=== PATIENT | female | born 1950 | race Caucasian/White ===

== ENCOUNTER 2017-05-13 11:07 | Day surgery (SDC) | payer OTHER ==
[~2017-05-13] VITALS: Ht 162.6 cm; Wt 83.5 kg
[~2017-05-13 11:07] MED LIST: ACET500T PO; AMLO5TAB2 PO; ATOR80TA14 PO; ATOR80TA59 PO; CLAR10CA3 PO; GABA400C PO; GABA800T PO; GLYB1TAB67 PO; GLYB2.5T PO; IBUP-1022 PO; JANU100T PO; LISI40TAB PO; OMEP20CA3 PO; OMEP40CA2 PO; PREM0.452 PO; TRAM50TA2 PO; TRIL135C PO; TYLE500T78 PO; ULTR50TA PO; VITA10002 PO; fenofibrate OR; prempro OR
[2017-05-13] MEDS ORDERED: dexameTHASONE 10 MG/1 ML VIAL PRES.FREE (J1100) ONE (11:08)
[2017-05-13] MEDS ORDERED: ROPIvacaine 0.5% 30 ML INJECTION (J2795 PER 1MG) ONE (11:08)
[2017-05-13] MEDS ORDERED: LIDOCAINE 1% MDV 20ML VIAL ONE (11:08)
[2017-05-13] MEDS ORDERED: HYDR-2808 PO (11:43)
[2017-05-13] MEDS ORDERED: LIDOCAINE 1% MDV 20ML VIAL As Ordered ONE (12:03)
[2017-05-13] MEDS ORDERED: EPINEPHrine 1MG/ML INJ 30ML MD-VIAL As Ordered ONE (12:03)
[2017-05-13] MEDS ORDERED: fentaNYL 100 MCG/2 ML INJECTION (J3010) As Ordered ONE ×2 (12:29→13:10)
[2017-05-13] MEDS ORDERED: MIDAZOLAM INJ 2 MG/2 ML VIAL (J2250) As Ordered ONE ×2 (12:29→13:10)
[2017-05-13] MEDS ORDERED: MIDAZOLAM INJ 2 MG/2 ML VIAL (J2250) IV ONE (13:15)
[2017-05-13] MEDS ORDERED: fentaNYL 100 MCG/2 ML INJECTION (J3010) IV ONE (13:15)
[2017-05-13] MEDS ORDERED: ONDANSETRON 4MG/2ML VIAL (J2405) As Ordered ONE (13:34)
[2017-05-13] MEDS ORDERED: dexameTHASONE 4 MG/ML 1ML VIAL (J1100) As Ordered ONE (13:34)
[2017-05-13] MEDS ORDERED: SUCCINYLCHOLINE 100 MG/5 ML SYRINGE (J0330) As Ordered ONE (13:34)
[2017-05-13] MEDS ORDERED: PROPOFOL 500 MG/50 ML VIAL As Ordered ONE (13:41)
[2017-05-13] MEDS ORDERED: DESFLURANE 240 ML INHALANT As Ordered ONE (13:54)
[2017-05-13] MEDS ORDERED: LIDOCAINE 2% INJ 100 MG/5 ML SDV (FOR ANES.) As Ordered ONE (13:56)
[2017-05-13] MEDS ORDERED: fentaNYL 100 MCG/2 ML INJECTION (J3010) IV PRN (16:30)
[2017-05-13] MEDS ORDERED: ONDANSETRON 4MG/2ML VIAL (J2405) IV PRN (16:30)
[2017-05-13] MEDS ORDERED: HYDROmorphone HCL 1 MG/ML SYRINGE (J1170) IV PRN (16:30)
[2017-05-13] MEDS ORDERED: PERCOCET 5MG/325MG TAB PO PRN (16:30)
[2017-05-13] MEDS ORDERED: LR 1,000 ML IV SCH ×2 (16:30→17:00)
[2017-05-13] MEDS ORDERED: MIRALAX *UNIT DOSE* 17GM PACKET PO PRN (17:00)
[2017-05-13] MEDS ORDERED: ACETAMINOPHEN TAB 650MG DOSE (2X325MG) As Ordered ONE (17:12)
[2017-05-13] MEDS ORDERED: ACETAMINOPHEN TAB 650MG DOSE (2X325MG) PO ONE (17:30)
[2017-05-13 20:00] VITALS: BP 152/85
[2017-05-13] MEDS ORDERED: ACETAMINOPHEN 500 MG TAB PO SCH (22:00)
[2017-05-13] MEDS ORDERED: IBUPROFEN 600 MG TAB PO SCH (22:00)
--- NOTE | 2017-05-14 13:58 | RO ---
DATE OF PROCEDURE: 05/13/2017 PREPROCEDURE DIAGNOSES: 1. Left shoulder full thickness rotator cuff tear. 2. Left shoulder impingement. 3. Left shoulder biceps tendon subluxation. 4. Left shoulder possible labral tear. POSTPROCEDURE DIAGNOSES: 1. Left shoulder full thickness rotator cuff tear. 2. Left shoulder impingement. 3. Left shoulder biceps tendon subluxation. PROCEDURE: 1. Left shoulder arthroscopy with arthroscopic rotator cuff repair. 2. Left shoulder arthroscopic subacromial decompression. 3. Left shoulder arthroscopic biceps tenotomy. SURGEON: Abimael Crystal MD PLASTIC JIG AND FIXTURE BUILDER: ELSY David ANESTHESIA: General with preoperative nerve block. IV FLUIDS: Lactated Ringers. ESTIMATED BLOOD LOSS: 25 mL. IMPLANTS: Arthrex 4.75 mm SwiveLock anchor times five and Arthrex 5.5 mm corkscrew anchor times one. CLOSURE: Nylon. INDICATIONS: Taylor is a 66-year-old female that suffered an injury several months ago and believes that she had a shoulder dislocation. She had complete pseudoparalysis on examination. MRI revealed a massive retracted rotator cuff tear with mild atrophy. We discussed the risks and benefits of surgery, including risk for repair and written and informed consent was obtained. DESCRIPTION OF PROCEDURE: The patient was identified in the preoperative holding area and the left arm was marked by myself. Preoperative nerve block by anesthesia was performed. She was brought to the operating room and placed supine on a well padded operating room tablet with a beanbag. General anesthesia was induced without complication. Examination under anesthesia revealed 160 degrees of passive forward flexion and 80 degrees external rotation with the arm at her side. There was no increased anterior or posterior translation. The patient was then placed into the right side down lateral decubitus position with an axillary roll and all bony prominences well padded. Venodyne boots on bilateral lower extremities. The left arm was then prepped and draped in a normal sterile fashion and the left arm was positioned into the Arthrex StaR sleeve. Repeat load and shift exam under anesthesia was performed and there was grade 1 anterior and posterior translation. No anterior instability. Prior to incision, time-out was performed, in which myself and all operating room staff confirmed the patient's name, medical record number, date of and the correct side, site and procedure. Tabby Lopez, as my housing assistant, was present for all essential portions of the procedure and participated in all essential portions of the procedure. The left shoulder was infiltrated with (verify). Standard posterior viewing portal made from an 11 blade. Arthroscope introduced into the joint revealing full thickness tear of the supra and infraspinatus, as well as the subscapularis. The long head of the biceps tendon was still attached to the superior labrum, but was medially subluxated. There was grade 1 chondromalacia of the humeral head and glenoid. There was extensive synovitis. A standard anterior working portal was localized with a spinal needle and an Arthrex cannula was brought into the rotator interval. The shaver was used to debride the undersurface of the rotator cuff, which had crystallin deposits, either due to prior cortisone shot of calcific tendonitis. The shaver was also used to debride synovium and frayed superior labrum. A meniscal biter was then used to perform a tenotomy in the long head of the biceps tendon. The shaver was used to remove tendon fragments. The subscapularis was not visible. Arthroscope was placed into the subacromial space and a standard lateral working portal was established. The coracoacromial ligament was thickened and calcified. I used the shaver to debride it, but it was quite stiff so the radiofrequency cautery was used to release the majority of the CA ligament, as well as to perform an extensive bursectomy. Following partial release of the CA ligament, there was increased space in the anterior compartment of the shoulder to allow for easier instrumentation. This was equivalent to an acromioplasty. There was a massive L-shaped tear in the rotator cuff. A traction stitch was placed in the anterior aspect of the supraspinatus in the comma tissue using the Scorpion. The scope was then placed back into the joint and with traction on that stitch, the subscapularis came into view. The lesser tuberosity was prepared with a bur to create a bony, bleeding bed. An accessory superolateral portal was established and then the scorpion was used to pass a limb of FiberTape through the upper half of the subscapularis tendon. The sutures were then retrieved off the anterior cannula and loaded through a 4.75 SwiveLock anchor. The appropriate puncture was used to create a socket in the lesser tuberosity and then the anchor was docked. Sutures were tensioned by hand, which nicely reduced the subscapularis. Cautery and a switching stick were used to perform releases along the anterior , superior and posterior aspects of the subscapularis tendon. This helped to remove any tension on the tendon. The anchor was then advanced by hand and fully seated with excellent fixation and tight repair. On probing of the subscapularis repair, it was firmly fixated to the lesser tuberosity. The arthroscope was placed back in the subacromial space and the appropriate configuration for rotator cuff repair was determined. In the far medial and posterior aspect of the L-shaped tear, I passed a #2 FiberWire in a margin converging fashion and knots were tied with arthroscopic knot pusher to help turn this into a crescent-shaped tear. A 5.5 SwiveLock anchor was then placed in the far anterior greater tuberosity to set the leading edge of the supraspinatus at the rotator interval. Sutures were passed in a horizontal mattress fashion and then arthroscopic knots were tied. The sutures were cut. I then used the Arthrex SpeedBridge kit and two medial anchors were placed. The sutures were cut so that each limb of FiberTape and TigerTape was individually passed for a total of four passes. Anterior suture was then retrieved out the lateral portal, which was used to determine the appropriate position for the lateral anchors. I placed two lateral anchors per routine for a SpeedBridge and there were no dog ears. All anchors had excellent fixation. Excess suture was cut with arthroscopic throat cutter. The arm was gently internally and externally rotated and the cuff moved nicely as a unit with zero dog ear. Shoulder was irrigated and drained. Portals closed with nylon suture and then a bulky, sterile bandage applied. The patient was carefully placed into an Arc II sling. All counts correct times two. Complications none. DISPOSITION: The patient was extubated and transferred to the postanesthesia care unit (PACU) in stable condition.
== END 2017-05-13 20:20 | disposition home or self-care (01) ==
LOC: M SDC 11:07
PROVIDERS: ATTEND Orthopaedic Surgery
DX: S46.012A Strain of muscle(s) and tendon(s) of the rotator cuff of left shoulder, initial encounter (principal); M75.42 Impingement syndrome of left shoulder; S46.112A Strain of muscle, fascia and tendon of long head of biceps, left arm, initial encounter; I10 Essential (primary) hypertension; E11.69 Type 2 diabetes mellitus with other specified complication; E78.5 Hyperlipidemia, unspecified; K21.9 Gastro-esophageal reflux disease without esophagitis; M19.90 Unspecified osteoarthritis, unspecified site; N95.9 Unspecified menopausal and perimenopausal disorder; J30.9 Allergic rhinitis, unspecified; E53.8 Deficiency of other specified B group vitamins; M54.16 Radiculopathy, lumbar region; Z88.5 Allergy status to narcotic agent; Z79.899 Other long term (current) drug therapy; Z98.1 Arthrodesis status; Z90.710 Acquired absence of both cervix and uterus; Z98.51 Tubal ligation status; X58.XXXA Exposure to other specified factors, initial encounter; Y92.89 Other specified places as the place of occurrence of the external cause; Y93.89 Activity, other specified; Y99.8 Other external cause status
CPT/HCPCS: 29826; 29827; 29828; C1713

== ENCOUNTER → 2018-03-18 | Outpatient (REF) | payer OTHER ==
[2018-03-18 17:22] LABS: APPEARANCE, URINE CLOUDY (CLEAR); BACTERIA, URINE AUTO 3+ (NEGATIVE); BILIRUBIN, URINE AUTO NEGATIVE (NEGATIVE); BLOOD, URINE BLOOD 2+ (NEGATIVE); COLOR, URINE YELLOW (YELLOW); GLUCOSE, URINE (UA) AUTO 1+ mg/dL (NEGATIVE); KETONE, URINE AUTO NEGATIVE (NEGATIVE); LEUKOCYTE ESTERASE, URINE AUTO 3+ (NEGATIVE); MUCUS, URINE SMALL (NEGATIVE); NITRITE, URINE AUTO POSITIVE (NEGATIVE); PROTEIN, URINE AUTO 2+ mg/dL (NEGATIVE); RBC, URINE AUTO 0 /HPF (0-3); SPECIFIC GRAVITY URINE AUTO 1.019 (1.002-1.035); SQUAMOUS EPITHELIAL CELL UR AU 1 /HPF (0-6); UROBILINOGEN, URINE AUTO 0.2 mg/dL (0.0-2.0); WBC, URINE AUTO 173 /HPF (0-3)
== END ==
LOC: M LAB REF 16:40
DX: N39.0 Urinary tract infection, site not specified (principal)
CPT/HCPCS: 81001

== ENCOUNTER → 2018-09-05 | Outpatient (REF) | payer MEDICARE, MEDICAID ==
[~2018-09-05] MED LIST changes: -AMLO5TAB2 PO; +AMLO5TAB6 PO; -GABA800T PO; +GABA800T4 PO; +HYDR-2808 PO; +LISI40TA52 PO; -LISI40TAB PO
[2018-09-05 18:58] LABS: APPEARANCE, URINE CLOUDY (CLEAR); BACTERIA, URINE AUTO 2+ (NEGATIVE); BILIRUBIN, URINE AUTO NEGATIVE (NEGATIVE); BLOOD, URINE BLOOD 3+ (NEGATIVE); COLOR, URINE AMBER (YELLOW); GLUCOSE, URINE (UA) AUTO NEGATIVE (NEGATIVE); KETONE, URINE AUTO TRACE mg/dL (NEGATIVE); LEUKOCYTE ESTERASE, URINE AUTO 2+ (NEGATIVE); MUCUS, URINE LARGE (NEGATIVE); NITRITE, URINE AUTO POSITIVE (NEGATIVE); PROTEIN, URINE AUTO 3+ mg/dL (NEGATIVE); RBC, URINE AUTO TNTC /HPF (0-3); SQUAMOUS EPITHELIAL CELL UR AU 20 /HPF (0-6); WBC, URINE AUTO TNTC /HPF (0-3)
== END ==
LOC: M LAB REF 17:22
PROVIDERS: ATTEND Obstetrics & Gynecology
DX: N39.0 Urinary tract infection, site not specified (principal)

== ENCOUNTER → 2018-11-06 | Outpatient (REF) | payer MEDICARE, MEDICAID ==
[2018-11-06 13:20] LABS: APPEARANCE, URINE CLEAR (CLEAR); BACTERIA, URINE AUTO NEGATIVE (NEGATIVE); BILIRUBIN, URINE AUTO NEGATIVE (NEGATIVE); BLOOD, URINE BLOOD NEGATIVE (NEGATIVE); COLOR, URINE YELLOW (YELLOW); GLUCOSE, URINE (UA) AUTO NEGATIVE (NEGATIVE); KETONE, URINE AUTO NEGATIVE (NEGATIVE); LEUKOCYTE ESTERASE, URINE AUTO NEGATIVE (NEGATIVE); NITRITE, URINE AUTO NEGATIVE (NEGATIVE); PROTEIN, URINE AUTO NEGATIVE (NEGATIVE); RBC, URINE AUTO 0 /HPF (0-3); SPECIFIC GRAVITY URINE AUTO 1.019 (1.002-1.035); SQUAMOUS EPITHELIAL CELL UR AU 0 /HPF (0-6); WBC, URINE AUTO 0 /HPF (0-3)
== END ==
LOC: M SMT 12:56
PROVIDERS: ATTEND Nurse Practitioner Family
DX: R31.29 Other microscopic hematuria (principal)
CPT/HCPCS: 81001; 87086; 88108; G0463

== ENCOUNTER → 2018-12-17 | Outpatient (REF) | payer MEDICARE, MEDICAID ==
[~2018-12-17] MED LIST changes: +CYAN100049 PO; -VITA10002 PO
[2018-12-17 13:24] LABS: APPEARANCE, URINE HAZY (CLEAR); BACTERIA, URINE AUTO 1+ (NEGATIVE); BILIRUBIN, URINE AUTO NEGATIVE (NEGATIVE); BLOOD, URINE BLOOD NEGATIVE (NEGATIVE); COLOR, URINE AMBER (YELLOW); GLUCOSE, URINE (UA) AUTO NEGATIVE (NEGATIVE); KETONE, URINE AUTO TRACE mg/dL (NEGATIVE); LEUKOCYTE ESTERASE, URINE AUTO NEGATIVE (NEGATIVE); MUCUS, URINE SMALL (NEGATIVE); NITRITE, URINE AUTO NEGATIVE (NEGATIVE); PROTEIN, URINE AUTO 2+ mg/dL (NEGATIVE); RBC, URINE AUTO 4 /HPF (0-3); SPECIFIC GRAVITY URINE AUTO 1.031 (1.002-1.035); SQUAMOUS EPITHELIAL CELL UR AU 5 /HPF (0-6); UROBILINOGEN, URINE AUTO 0.2 mg/dL (0.0-2.0); WBC, URINE AUTO 7 /HPF (0-3)
== END ==
LOC: M SMT 12:58
PROVIDERS: ATTEND Nurse Practitioner Family
DX: N20.0 Calculus of kidney (principal)

== ENCOUNTER 2020-04-29 00:31 | Emergency (ER) | payer MEDICARE, MEDICAID ==
[~2020-04-29] VITALS: Ht 162.6 cm; Wt 80.9 kg
[~2020-04-29 00:31] MED LIST changes: +AMLO1TAB24 PO; -AMLO5TAB6 PO; -GLYB1TAB67 PO; +GLYB5TAB12 PO; -HYDR-2808 PO; +HYDR-4429 PO; -OMEP40CA2 PO; +OMEP40CA97 PO
[2020-04-29] MEDS ORDERED: ACETAMINOPHEN 500 MG TAB PO ONE (02:00)
[2020-04-29] MEDS ORDERED: CAPS0.022 TOP (02:37)
[2020-04-29] MEDS ORDERED: OZEM2INJ (02:37)
[2020-04-29] MEDS ORDERED: ROSU40TA4 (02:37)
[2020-04-29] MEDS ORDERED: GLIP5TAB (02:37)
[2020-04-29 02:44] VITALS: BP 148/78
[2020-04-29] MEDS ORDERED: NORCO 5/325MG TABLET (BULK FOR ED) PO ONE (02:45)
--- NOTE | 2020-04-29 02:54 | REPVR ---
PROCEDURE INFORMATION: Exam: XR Left Wrist Exam date and time: 04/29/2020 2:48 AM Age: 69 years old Clinical indication: Other: Dropped piece of wood on it; Additional info: Dropped piece of wood on it TECHNIQUE: Imaging protocol: XR Left wrist. Views: 3 or more views. COMPARISON: No relevant prior studies available. FINDINGS: No focal soft tissue swelling. No acute fracture. Carpal bones align normally. No bone lesion. Scaphoid appears intact. OA changes of the thumb CMC joint. Other joint spaces are well maintained. Chondrocalcinosis and periarticular calcifications are present IMPRESSION: No acute fracture or osseous malalignment. Thumb base degenerative osteoarthrosis and polyarticular benign chondrocalcinosis Electronically signed by: John Balderas On 04/29/2020 02:54:53 AM
--- NOTE | 2020-04-29 03:02 | REPVR ---
PROCEDURE INFORMATION: Exam: XR Right Knee Exam date and time: 04/29/2020 2:48 AM Age: 69 years old Clinical indication: Other: Pain when moved in bed, ; additional info: Pain when moved in bed, not improving x 4 days TECHNIQUE: Imaging protocol: XR Right knee. Views: 4 or more views. COMPARISON: No relevant prior studies available. FINDINGS: Bones/joints: Large knee joint effusion on the lateral view. Bones are aligned normally with normal mineralization. No fracture, evidence of stress fracture or osteochondral lesion. Tricompartmental joint space narrowing and marginal spurring is consistent with OA. Benign chondrocalcinosis and atherosclerotic calcifications. Soft tissues: No effacement of subcutaneous soft tissue planes. IMPRESSION: 1. Large knee joint effusion but no acute osseous abnormality. 2. Tricompartmental osteoarthrosis of the knee and benign chondrocalcinosis Electronically signed by: John Balderas On 04/29/2020 03:02:38 AM
== END 2020-04-29 03:00 | disposition home or self-care (01) ==
LOC: M ED 00:31
DX: M17.11 Unilateral primary osteoarthritis, right knee (principal); M19.032 Primary osteoarthritis, left wrist; M25.532 Pain in left wrist; E11.9 Type 2 diabetes mellitus without complications; I10 Essential (primary) hypertension; Z79.84 Long term (current) use of oral hypoglycemic drugs; Z79.899 Other long term (current) drug therapy; Z88.5 Allergy status to narcotic agent

== ENCOUNTER → 2020-07-02 | Outpatient (CLI) | payer MEDICARE ==
[~2020-07-02] MED LIST changes: +CAPS0.022 TOP; +FENO134C PO; +GLIP5TAB PO; +IBUP1TAB7 PO; +LISI40TA4 PO; +OZEM2INJ; +OZEM2INJ2 SC; +ROSU40TA4 PO
== END ==
LOC: M LABSMTC 10:43
PROVIDERS: ATTEND Anesthesiology
DX: Z01.812 Encounter for preprocedural laboratory examination (principal); Z20.828 Contact with and (suspected) exposure to other viral communicable diseases

== ENCOUNTER → 2020-08-30 | Outpatient (REF) | payer OTHER ==
[2020-08-30 17:17] LABS: APPEARANCE, URINE CLOUDY (CLEAR); BACTERIA, URINE AUTO 3+ (NEGATIVE); BILIRUBIN, URINE AUTO NEGATIVE (NEGATIVE); BLOOD, URINE BLOOD 3+ (NEGATIVE); COLOR, URINE AMBER (YELLOW); GLUCOSE, URINE (UA) AUTO NEGATIVE (NEGATIVE); KETONE, URINE AUTO NEGATIVE (NEGATIVE); LEUKOCYTE ESTERASE, URINE AUTO 3+ (NEGATIVE); MUCUS, URINE SMALL (NEGATIVE); NITRITE, URINE AUTO NEGATIVE (NEGATIVE); PROTEIN, URINE AUTO 2+ mg/dL (NEGATIVE); RBC, URINE AUTO 167 /HPF (0-3); SPECIFIC GRAVITY URINE AUTO 1.025 (1.002-1.035); SQUAMOUS EPITHELIAL CELL UR AU 2 /HPF (0-6); WBC, URINE AUTO TNTC /HPF (0-3)
== END ==
LOC: M LAB REF 15:55
PROVIDERS: ATTEND Obstetrics & Gynecology
DX: N39.0 Urinary tract infection, site not specified (principal)

== ENCOUNTER → 2022-02-14 | Outpatient (REF) | payer MEDICARE, OTHER ==
[~2022-02-14] MED LIST changes: -FENO134C PO; +FENO134C16 PO; +GLYB-150 PO; -GLYB5TAB12 PO; +OMEP40CA4 PO; -OMEP40CA97 PO
[2022-02-14 20:24] LABS: BACTERIA, URINE LARGE AMOUNT; HYALINE CAST, URINE NONE SEEN /lpf (0-1); SQUAMOUS EPITHELIAL CELL URINE SMALL AMOUNT /hpf (SMALL AMT); WBC, URINE 30-40 /hpf (0-3)
== END ==
LOC: M SMT 16:40
PROVIDERS: ATTEND Specialist
DX: R30.0 Dysuria (principal)

== ENCOUNTER → 2022-03-23 | Outpatient (CLI) | payer MEDICARE | LOC: M RAD 11:43 | PROVIDERS: ATTEND Specialist | DX: R31.29 Other microscopic hematuria (principal); N26.1 Atrophy of kidney (terminal); N20.0 Calculus of kidney; N28.1 Cyst of kidney, acquired ==